=== PATIENT | male | born 1965 | race Caucasian/White ===

== ENCOUNTER 2020-05-10 09:59 | Outpatient (NON) | payer BC, SELFPAY ==
[2020-05-11 21:14] LABS: SARS-CoV-2 RNA PCR Positive
== END 2020-05-10 10:00 ==
PROVIDERS: PCP Internal Medicine; Visit Provider Internal Medicine
DX: U07.1 COVID-19 (principal)
CPT/HCPCS: 87635; C9803; U0003

== ENCOUNTER 2021-06-19 09:01 | Outpatient (RCR) | payer BC, SELFPAY ==
[2021-06-19 15:17] VITALS: BP 150/80; PULSE 78; RESP 20; TEMP 36.8; O2SAT 98
[2021-06-19] MEDS: diphenhydrAMINE HCl CAP 25 MG CAPSULE PO (15:21)
[2021-06-19] MEDS: FAMOTIDINE 20 MG TABLET PO (15:21)
[2021-06-19] MEDS: ACETAMINOPHEN 325 MG TABLET 650 MG PO (15:22)
[2021-06-19 16:23] VITALS: BP 145/80
== END 2021-06-19 17:00 ==
LOC: AMCINF 09:01
PROVIDERS: PCP Physician Assistant; Visit Provider Internal Medicine Hematology & Oncology
DX: U07.1 COVID-19 (principal)
CPT/HCPCS: A9270; M0243; Q0244